=== PATIENT | male | born 1960 | race Caucasian/White ===

== ENCOUNTER 2016-12-25 17:48 | Emergency (ER) | payer MEDICAID ==
--- NOTE | 2016-12-25 18:34 | ER Document Report ---
ED Medical Screen (RME) - General Chief Complaint: Breathing Difficulty Stated Complaint: BACK PAIN Notes: Patient on chronic pain management moved here 2 weeks ago. Does not have a local doctor. Ran out of his Advair recently. Complains of pain to the right knee mostly on the lateral side for the past month, he broke his knee back before Thanksgiving. Also complains of pain to the left wrist which he broke about a month ago. He also reports that he is feeling some shortness of breath. I have greeted and performed a rapid initial assessment of this patient. A comprehensive ED assessment and evaluation of the patient, analysis of test results and completion of the medical decision making process will be conducted by additional ED providers. TRAVEL OUTSIDE OF THE [place] IN LAST 30 DAYS: No - Related Data Allergies/Adverse Reactions: No Known Allergies Allergy (Verified 12/25/16 18:23) Past Medical History Renal/ Medical History: Denies: Hx Peritoneal Dialysis Physical Exam - Vital signs Vitals: Temp Pulse Resp BP Pulse Ox 98.5 F 97 18 117/82 93 12/25/16 17:52 12/25/16 17:52 12/25/16 17:52 12/25/16 17:52 12/25/16 17:52 Course - Vital Signs Vital signs: Temp Pulse Resp BP Pulse Ox 98.5 F 97 18 117/82 93 12/25/16 17:52 12/25/16 17:52 12/25/16 17:52 12/25/16 17:52 12/25/16 17:52
[2016-12-25] MEDS ORDERED: HYDROCODONE/ACETAMINOPHEN 5-325 MG TABLET PO ONE (20:29)
[2016-12-25] MEDS ORDERED: PREDNISONE 20 MG TABLET PO ONE (20:30)
[2016-12-25] MEDS ORDERED: IPRATROPIUM/ALBUTEROL 0.5-2.5 MG/3 ML AMPUL NEB ONE (20:30)
--- NOTE | 2016-12-25 20:57 | ER Document Report ---
ED General - General Chief Complaint: Breathing Difficulty Stated Complaint: BACK PAIN Mode of Arrival: Ambulatory Information source: Patient Notes: Patient states that he just moved to this area recently and has been moving for the past 2 weeks and has aggravated his chronic low back pain. Patient states 5 weeks ago he fractured his left wrist and did not get a splint applied until 2 weeks after the initial injury. Patient states that he removed the splint 10 days ago due to it being in his way. Patient also complains of chronic knee pain due to a history of previous fracture years ago. Patient complains of knee pain for the past 3 weeks. Patient denies any new injury. Patient suspects that the moving has aggravated his chronic pain symptoms. Patient additionally states that he has asthma and COPD and he ran out of his Advair and cannot find his albuterol inhaler patient denies any fever. Patient denies any chest pain. TRAVEL OUTSIDE OF THE [place] IN LAST 30 DAYS: No - HPI Onset: Last week Onset/Duration: Persistent Quality of pain: Achy, Sharp Pain Level: 4 Associated symptoms: Productive cough. denies: Chest pain, Fever, Headache, Nausea, Vomiting Exacerbated by: Movement Relieved by: Denies Similar symptoms previously: Yes Recently seen / treated by doctor: No - Related Data Allergies/Adverse Reactions: No Known Allergies Allergy (Verified 12/25/16 18:23) Past Medical History - General Information source: Patient - Social History Smoking Status: Current Every Day Smoker Frequency of alcohol use: Occasional Drug Abuse: None Occupation: none Lives with: Friend Family History: Reviewed & Not Pertinent Patient has suicidal ideation: No Patient has homicidal ideation: No Pulmonary Medical History: Reports: Hx Asthma, Hx COPD Renal/ Medical History: Denies: Hx Peritoneal Dialysis Musculoskeltal Medical History: Reports Hx Arthritis, Reports Other - Chronic back pain Past Surgical History: Reports: Hx Adenoidectomy, Hx Tonsillectomy Review of Systems - Review of Systems Constitutional: No symptoms reported. denies: Fever, Recent illness EENT: No symptoms reported Cardiovascular: No symptoms reported. denies: Chest pain Respiratory: Cough, Short of breath, Sputum Gastrointestinal: No symptoms reported. denies: Vomiting Genitourinary: No symptoms reported, Retention. denies: Dysuria, Incontinence Male Genitourinary: No symptoms reported Musculoskeletal: Back pain, Joint pain - Right knee, left wrist Skin: No symptoms reported Hematologic/Lymphatic: No symptoms reported Neurological/Psychological: No symptoms reported Physical Exam - Vital signs Vitals: Temp Pulse Resp BP Pulse Ox 98.5 F 97 18 117/82 93 12/25/16 17:52 12/25/16 17:52 12/25/16 17:52 12/25/16 17:52 12/25/16 17:52 - General General appearance: Appears well, Alert In distress: None - HEENT Head: Normocephalic, Atraumatic Eyes: Normal Conjunctiva: Normal Ears: Normal External canal: Normal Tympanic membrane: Normal Nasal: Normal Mouth/Lips: Normal Mucous membranes: Normal Pharynx: Normal Neck: Normal, Supple. No: Lymphadenopathy - Respiratory Respiratory status: No respiratory distress Chest status: Nontender Breath sounds: Productive cough - occasionally, Wheezing Chest palpation: Normal - Cardiovascular Rhythm: Regular Heart sounds: S1 appreciated, S2 appreciated Murmur: No - Abdominal Inspection: Normal Distension: No distension Tenderness: Nontender - Back Back: Tender - Lower lumbar paraspinal tenderness - Extremities General upper extremity: Tender - Left wrist, Normal ROM General lower extremity: Normal inspection, Tender - Right knee, Normal ROM Shoulder: Normal, Nontender Arm: Normal, Nontender Elbow: Normal, Nontender Forearm: Normal, Nontender Wrist: Tender - Left wrist tenderness over distal radius. No: Ecchymosis, Instability, Laceration Hand: Normal, Nontender Knee: Tender - Right knee joint tenderness to lateral compartment, Pain with ROM , Patellar tendon intact. No: Abrasion, Deformity, Dislocation, Ecchymosis, Instability, Joint effusion, Laceration, Laxity with valgus stress, Laxity with varus stress, Unable to bear weight - Neurological Neuro grossly intact: Yes Cognition: Normal [place] Coma Scale Eye Opening: Spontaneous [place] Coma Scale Verbal: Oriented [place]ana Coma Scale Motor: Obeys Commands [place] Coma Scale Total: 15 - Psychological Associated symptoms: Normal affect, Normal mood - Skin Skin Temperature: Warm Skin Moisture: Dry Skin Color: Normal Course - Re-evaluation Re-evalutation: 12/25/16 20:[address] Marinelli regarding patient presentation. Does not recommend immobilization at this time as patient was previously immobilize and removed it. Doesn't recommend encouraging patient to follow up with orthopedic DrDenise for follow-up. Agrees with planned evaluation and discharge. Pt HR 94, sat 95%, rr 20. 12/25/16 21:22 Wheezing resolved, patient with good air movement bilaterally. Discussed plan of care with patient. Patient encouraged to follow-up with primary doctor as well as orthopedic Dr. for further evaluation. Discussed smoking cessation with patient for at least 3 minutes. Discussed worsening signs or symptoms that he should return immediately for. Patient encouraged to take his tramadol that he has at home for pain relief. - Vital Signs Vital signs: Temp Pulse Resp BP Pulse Ox 97.6 F 85 16 107/67 93 12/25/16 19:26 12/25/16 21:15 12/25/16 21:15 12/25/16 21:15 12/25/16 21:15 - Diagnostic Test Radiology reviewed: Image reviewed, Reports reviewed Discharge - Discharge Clinical Impression: Arthritis, Asthma exacerbation, Chronic pain of right knee, Hx of fracture of radius, History of COPD Chronic back pain Qualifiers: Back pain location: low back pain Back pain laterality: bilateral Sciatica presence: without sciatica Qualified Code(s): M54.5 - Low back pain Condition: Stable Disposition: HOME, SELF-CARE Instructions: Chronic Pain Control ([facility]), Arthritis ([facility]), Asthma ([facility]), Steroid Medication, Inhaled Bronchodilators ([facility]), Chronic Obstructive Lung Disease ([facility]) Additional Instructions: Return immediately for any new or worsening symptoms Followup with your primary care provider, call tomorrow to make a followup appointment Take your pain medication that you have at home as prescribed Follow-up with an orthopedic Dr. for further management of your fractured wrist Avoid heavy lifting Prescriptions: Fluticasone/Salmeterol [Advair 250-50 Diskus 14 Dose/Diskus] 1 inh IH Q12H #1 inhaler Prednisone [Deltasone 20 mg Tablet] 3 tab PO DAILY 4 Days Forms: Smoking Cessation Education Referrals: [facility] [Provider Group] - 12/28/16 [facility] [Provider Group] - 12/28/16
[2016-12-25 21:16] VITALS: BP 107/67
[2016-12-25] MEDS ORDERED: ALBUTEROL SULFATE HFA (90 MCG/PUFF) 8 GM MDI (1 MDI/ER DISP) IH ONE (21:25)
== END 2016-12-25 21:38 | disposition home or self-care (01) ==
LOC: ER 17:48
DX: J45.901 Unspecified asthma with (acute) exacerbation (principal); M19.90 Unspecified osteoarthritis, unspecified site; G89.29 Other chronic pain; M25.561 Pain in right knee; M54.5 Low back pain; J44.9 Chronic obstructive pulmonary disease, unspecified; F17.200 Nicotine dependence, unspecified, uncomplicated; Z87.81 Personal history of (healed) traumatic fracture
CPT/HCPCS: 94640; 99284; 71020; 73562; 73110; J7512; J3490; J7620